=== PATIENT | female | born 1975 | race African-American/Black ===

== ENCOUNTER 2019-10-18 10:38 | Emergency (ER) | payer SELFPAY ==
[~2019-10-18] VITALS: Ht 149.9 cm; Wt 59.0 kg
[~2019-10-18 10:38] MED LIST: CHOL100013 PO
[2019-10-18] MEDS ORDERED: ASPIRIN CHEWABLE 81 MG TABLET. PO ONE (11:00)
--- NOTE | 2019-10-18 11:09 | PHYS DOC ---
Past Medical History Past Medical History: Hypertension, Hypothyroid Past Surgical History: No Surgical History Additional Past Surgical Histo: exploritory lap Smoking: Less than 1pk/day Alcohol Use: None Drug Use: None The HEART Score for CP Pts HEART Score for Chest Pain: HEART Score for Chest Pain Response (Comments) Value History Slighlty/Non-Suspicious 0 ECG Normal 0 Age < 45 0 Risk Factors 1 or 2 Risk Factors 1 Troponin < Normal Limit 0 Total 1 Risk Factors: Risk Factors: DM, Current or recent (<one month) smoker, HTN, HLP, family history of CAD, obesity. Risk Scores: Score 0 - 3: 2.5% MACE over next 6 weeks - Discharge Home Score 4 - 6: 20.3% MACE over next 6 weeks - Admit for Clinical Observation Score 7 - 10: 72.7% MACE over next 6 weeks - Early Invasive Strategies Adult General Chief Complaint Chief Complaint: CHEST PAIN HPI HPI Patient is a 44 year old female who presented to ER today for evaluation of left-sided chest pain that radiated to her left shoulder started about 1 hour ago. Patient denies any history of blood clot disorder, no history of recent travel or operation. Patient is a smoker, she had no history of diabetes. Patient had no history of coronary artery disease. Patient has history hypertension. Patient said her mom has history of heart attack at age of 65. She denies any cough or fever. Patient said the chest pain get worse with deep breathing or cough. aLL OTHER ros IS NEGATIVE UNLESS OTHERWISE NOTED IN hpi Review of Systems Review of Systems See above Current Medications Current Medications Current Medications Medications (Trade) Dose Ordered Sig/Erika Start Time Stop Time Status Last Admin Dose Admin Aspirin (Children'S Aspirin) 324 mg 1X ONCE 10/18/19 11:00 10/18/19 11:01 DC 10/18/19 11:21 324 MG Ketorolac Tromethamine (Toradol 30mg Vial) 30 mg 1X ONCE 10/18/19 12:15 10/18/19 12:16 DC 10/18/19 12:25 30 MG Allergies Allergies Allergies Coded Allergies Type Severity Reaction Last Updated Verified morphine Allergy Intermediate RASH 06/28/14 Yes Physical Exam Physical Exam See above Constitutional: Well developed, well nourished, no acute distress, non-toxic appearance. [] HENT: Normocephalic, atraumatic, bilateral external ears normal, oropharynx moist, no oral exudates, nose normal. [] Eyes: PERRLA, EOMI, conjunctiva normal, no discharge. [] Neck: Normal range of motion, no tenderness, supple, no stridor. [] Cardiovascular:Heart rate regular rhythm, no murmur [] Lungs & Thorax: Bilateral breath sounds clear to auscultation , LEFT SIDE ANTERIOR CHEST IS TENDER TO PALPATION, NO CREPITUS, NO RASH. Abdomen: Bowel sounds normal, soft, no tenderness, no masses, no pulsatile masses. [] Skin: Warm, dry, no erythema, no rash. [] Back: No tenderness, no CVA tenderness. [] Extremities: No tenderness, no cyanosis, no clubbing, ROM intact, no edema. [] Neurologic: Alert and oriented X 3, normal motor function, normal sensory function, no focal deficits noted. [] Psychologic: Affect normal, judgement normal, mood normal. [] Current Patient Data Vital Signs Vital Signs Date Time Temp Pulse Resp B/P (MAP) Pulse Ox O2 Delivery O2 Flow Rate FiO2 10/18/19 10:42 98.9 78 18 112/67 (82) 99 Room Air 98.9 Lab Values Laboratory Tests Test 10/18/19 10:53 White Blood Count 4.0 x10^3/uL (4.0-11.0) Red Blood Count 4.31 x10^6/uL (3.50-5.40) Hemoglobin 11.1 g/dL (12.0-15.5) L Hematocrit 34.6 % (36.0-47.0) L Mean Corpuscular Volume 81 fL (79-100) Mean Corpuscular Hemoglobin 26 pg (25-35) Mean Corpuscular Hemoglobin Concent 32 g/dL (31-37) Red Cell Distribution Width 16.8 % (11.5-14.5) H Platelet Count 259 x10^3/uL (140-400) Neutrophils (%) (Auto) 44 % (31-73) Lymphocytes (%) (Auto) 40 % (24-48) Monocytes (%) (Auto) 12 % (0-9) H Eosinophils (%) (Auto) 3 % (0-3) Basophils (%) (Auto) 1 % (0-3) Neutrophils # (Auto) 1.8 x10^3/uL (1.8-7.7) Lymphocytes # (Auto) 1.6 x10^3/uL (1.0-4.8) Monocytes # (Auto) 0.5 x10^3/uL (0.0-1.1) Eosinophils # (Auto) 0.1 x10^3/uL (0.0-0.7) Basophils # (Auto) 0.0 x10^3/uL (0.0-0.2) Prothrombin Time 12.8 SEC (11.7-14.0) Prothrombin Time INR 1.0 (0.8-1.1) D-Dimer (Dorothea) 0.35 ug/mlFEU (0.00-0.50) Sodium Level 138 mmol/L (136-145) Potassium Level 4.6 mmol/L (3.5-5.1) Chloride Level 103 mmol/L (98-107) Carbon Dioxide Level 26 mmol/L (21-32) Anion Gap 9 (6-14) Blood Urea Nitrogen 11 mg/dL (7-20) Creatinine 0.8 mg/dL (0.6-1.0) Estimated GFR (Cockcroft-Gault) 94.7 BUN/Creatinine Ratio 14 (6-20) Glucose Level 92 mg/dL (70-99) Calcium Level 9.2 mg/dL (8.5-10.1) Magnesium Level 2.0 mg/dL (1.8-2.4) Total Bilirubin 0.2 mg/dL (0.2-1.0) Aspartate Amino Transferase (AST) 14 U/L (15-37) L Alanine Aminotransferase (ALT) 12 U/L (14-59) L Alkaline Phosphatase 63 U/L (46-116) Troponin I Quantitative < 0.017 ng/mL (0.000-0.055) ZA-Squ-D-Type Natriuretic Peptide 67 pg/mL (0-124) Total Protein 7.2 g/dL (6.4-8.2) Albumin 4.2 g/dL (3.4-5.0) Albumin/Globulin Ratio 1.4 (1.0-1.7) Lipase 60 U/L (73-393) L Laboratory Tests 10/18/19 10:53 Laboratory Tests 10/18/19 10:53 EKG EKG EKG was read by this physician at 1048, rate of 83 bpm, no STEMI. SINUS RHYTHM. [] Radiology/Procedures Radiology/Procedures CHEST XRAY: NO ACUTE DISEASE. [] Course & Med Decision Making Course & Med Decision Making Pertinent Labs and Imaging studies reviewed. (See chart for details) [] Dragon Disclaimer Dragon Disclaimer This electronic medical record was generated, in whole or in part, using a voice recognition dictation system. Departure Departure Impression: Primary Impression: Chest pain Disposition: HOME, SELF-CARE Condition: STABLE Referrals: TODD BATISTA MD (PCP) FOLLOW UP WITH YOUR DOCTOR THIS WEEK FOR OUTPATIENT EVALUATION. Patient Instructions: Chest Pain (Nonspecific) RYAN SANFORD DO Oct 18, 2019 11:08
--- NOTE | 2019-10-18 11:18 | EKG ---
[facility] [address] [place] [address] Test Date: 2019-10-18 Test Time: 10:45:38 Pat Name: IRVING HUGHES Department: Patient ID: [id number] Room: Gender: F Rehabilitation Assistant: REBECCA ER : [id number] Requested By: RYAN SANFORD Order Number: [id number] Reading MD: Measurements Intervals Union Rate: 83 P: 67 VA: 120 QRS: 82 QRSD: 78 T: 54 QT: 332 QTc: 391 Interpretive Statements SINUS RHYTHM NORMAL ECG RI6.01 No previous ECG available for comparison
[2019-10-18 11:19] LABS: BASO % 1 % (0-3); EOS # 0.1 x10^3/uL (0.0-0.7); EOS % 3 % (0-3); HEMATOCRIT 34.6 % (36.0-47.0); HEMOGLOBIN 11.1 g/dL (12.0-15.5); LYMPH # 1.6 x10^3/uL (1.0-4.8); LYMPH % 40 % (24-48); MEAN CORPUSCULAR HEMOGLOBIN 26 pg (25-35); MEAN CORPUSCULAR HGB CONC 32 g/dL (31-37); MEAN CORPUSCULAR VOLUME 81 fL (79-100); MONO # 0.5 x10^3/uL (0.0-1.1); MONO % 12 % (0-9); NEUT # 1.8 x10^3/uL (1.8-7.7); NEUT % 44 % (31-73); PLATELET COUNT 259 x10^3/uL (140-400); RED BLOOD COUNT 4.31 x10^6/uL (3.50-5.40); RED CELL DISTRIBUTION WIDTH 16.8 % (11.5-14.5)
--- NOTE | 2019-10-18 11:19 | RAD ---
EXAM: CHEST ONE VIEW. HISTORY: Chest pain. COMPARISON: None. FINDINGS: A frontal view of the chest is obtained. There are no confluent infiltrates. There is no pneumothorax or pleural effusion. The heart is not enlarged. 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 IMPRESSION: 1. No confluent infiltrates. Electronically signed by: Hans Verduzco MD (10/18/2019 11:16 AM) [facility]
[2019-10-18 11:33] LABS: PROTHROMBIN TIME PATIENT 12.8 SEC (11.7-14.0)
[2019-10-18 11:35] LABS: CALCIUM 9.2 mg/dL (8.5-10.1); CREATININE 0.8 mg/dL (0.6-1.0); GFR 94.7; POTASSIUM 4.6 mmol/L (3.5-5.1)
[2019-10-18 11:41] LABS: ALBUMIN 4.2 g/dL (3.4-5.0); ALBUMIN/GLOBULIN RATIO 1.4 (1.0-1.7); TOTAL BILIRUBIN 0.2 mg/dL (0.2-1.0); TOTAL PROTEIN 7.2 g/dL (6.4-8.2)
[2019-10-18] MEDS ORDERED: KETOROLAC 30 MG/ML VIAL. IVP ONE (12:15)
[2019-10-18 12:29] VITALS: BP 101/58
== END 2019-10-18 12:30 | disposition home or self-care (01) ==
LOC: ER 10:38
DX: R07.89 Other chest pain (principal); I10 Essential (primary) hypertension; E03.9 Hypothyroidism, unspecified; F17.200 Nicotine dependence, unspecified, uncomplicated; Z98.890 Other specified postprocedural states; Z88.6 Allergy status to analgesic agent; Z79.82 Long term (current) use of aspirin
CPT/HCPCS: 36415; 71045; 80053; 83690; 83735; 83880; 84484; 85025; 85379; 85610; 93005; 96374; 99285; J1885